=== PATIENT | female | born 1990 | race Two or more races ===

== ENCOUNTER 2021-09-01 17:27 | Emergency (ER) | payer OTHER ==
[~2021-09-01] VITALS: Ht 165.1 cm; Wt 61.7 kg
[2021-09-01 21:05] VITALS: BP 130/76
== END 2021-09-01 21:11 | disposition home or self-care (01) ==
LOC: ER 17:27
DX: S92.902A Unspecified fracture of left foot, initial encounter for closed fracture (principal); W10.8XXA Fall (on) (from) other stairs and steps, initial encounter; Y93.01 Activity, walking, marching and hiking; Y92.89 Other specified places as the place of occurrence of the external cause; Y99.8 Other external cause status
CPT/HCPCS: 29515; 73630